=== PATIENT | female | born 1925 | race Caucasian/White ===

== ENCOUNTER 2017-05-30 12:11 | Inpatient (IN) | payer OTHER ==
[~2017-05-30] VITALS: Ht 152.4 cm; Wt 59.0 kg
[~2017-05-30 12:11] MED LIST: [UNRECOGNIZED DRUG - OTHER]
[2017-05-30] MEDS ORDERED: HYZAAR 100-251 EACH PO (12:32)
[2017-05-30] MEDS ORDERED: FEMARA2.5 MG PO (12:33)
[2017-05-30] MEDS ORDERED: NAMENDA10 MG PO (12:33)
[2017-05-30] MEDS ORDERED: RISPERDAL0.5 MG PO (12:34)
[2017-06-12] MEDS ORDERED: IPRATROPIU0.2 MG/1 M IH (09:35)
[2017-06-12] MEDS ORDERED: Pulmicort 0.5 MG/2 M IH (09:35)
[2017-06-12] MEDS ORDERED: Ferro-Plex CAPLET PO (09:45)
[2017-06-12] MEDS ORDERED: FEMARA2.5 MG PO (09:45)
[2017-06-12] MEDS ORDERED: FOLIC ACID1 MG PO (09:45)
[2017-06-12] MEDS ORDERED: POM (MEDICAMENTO EN PO ×2 (09:45)
[2017-06-12] MEDS ORDERED: Coreg 6.25MG TABLET PO (09:45)
[2017-06-12] MEDS ORDERED: LASIX20 MG PO (09:45)
[2017-06-12] MEDS ORDERED: NAMENDA10 MG PO (09:45)
[2017-06-12] MEDS ORDERED: RISPERIDONE0.5 MG PO (09:45)
[2017-06-12] MEDS ORDERED: BISAC-EVAC10 MG RECTAL (09:45)
[2017-06-12] MEDS ORDERED: ELIQUIS2.5 MG PO (09:45)
[2017-06-12] MEDS ORDERED: ISORDIL10 MG PO (09:45)
[2017-06-12] MEDS ORDERED: LOSARTAN POTASS50 MG PO (09:45)
[2017-06-12] MEDS ORDERED: Neurin-Sl Tablet Sl SL (09:45)
== END 2017-06-12 18:34 | disposition home health service (06) | DRG 292 ==
LOC: ER 12:11 → MEDJ 18:57 → SEC-K 22:46 → MEDI 05-31 03:27 → SEC-K 05-31 04:34 → MEDJ 05-31 10:38 → SURH 05-31 17:13
PROC: 4A033R1 Measurement of Arterial Saturation, Peripheral, Percutaneous Approach (ICD-10-PCS; principal; 2017-05-30)
PROC: 3E0F7GC Introduction of Other Therapeutic Substance into Respiratory Tract, Via Natural or Artificial Opening (ICD-10-PCS; 2017-05-30)
PROC: B44HZZZ Ultrasonography of Bilateral Lower Extremity Arteries (ICD-10-PCS; 2017-05-31)
PROC: B54DZZZ Ultrasonography of Bilateral Lower Extremity Veins (ICD-10-PCS; 2017-05-31)
PROC: B246ZZZ Ultrasonography of Right and Left Heart (ICD-10-PCS; 2017-05-31)
PROC: 4A12X4Z Monitoring of Cardiac Electrical Activity, External Approach (ICD-10-PCS; 2017-05-31)
PROC: CB121ZZ Planar Nuclear Medicine Imaging of Lungs and Bronchi using Technetium 99m (Tc-99m) (ICD-10-PCS; 2017-06-04)
PROC: BB24ZZZ Computerized Tomography (CT Scan) of Bilateral Lungs (ICD-10-PCS; 2017-06-06)
DX: I11.0 Hypertensive heart disease with heart failure (principal); J90 Pleural effusion, not elsewhere classified; N17.8 Other acute kidney failure; I27.82 Chronic pulmonary embolism; I48.0 Paroxysmal atrial fibrillation; I50.23 Acute on chronic systolic (congestive) heart failure; E11.65 Type 2 diabetes mellitus with hyperglycemia; I34.0 Nonrheumatic mitral (valve) insufficiency; D64.89 Other specified anemias; I70.293 Other atherosclerosis of native arteries of extremities, bilateral legs; E87.6 Hypokalemia; R09.02 Hypoxemia; C50.912 Malignant neoplasm of unspecified site of left female breast

== ENCOUNTER 2017-06-20 14:42 | Inpatient (IN) | payer OTHER ==
[~2017-06-20] VITALS: Ht 160 cm; Wt 72.6 kg
[~2017-06-20 14:42] MED LIST changes: +BISAC-EVAC10 MG RECTAL; +Coreg 6.25MG TABLET PO; +ELIQUIS2.5 MG PO; +FEMARA2.5 MG PO; +FOLIC ACID1 MG PO; +Ferro-Plex CAPLET PO; +HYZAAR 100-251 EACH PO; +IPRATROPIU0.2 MG/1 M IH; +ISORDIL10 MG PO; +LASIX20 MG PO; +LOSARTAN POTASS50 MG PO; +NAMENDA10 MG PO; +Neurin-Sl Tablet Sl SL; +POM (MEDICAMENTO EN PO; +Pulmicort 0.5 MG/2 M IH; +RISPERDAL0.5 MG PO; +RISPERIDONE0.5 MG PO
[2017-06-27] MEDS ORDERED: LASIX40 MG PO (17:23)
[2017-06-27] MEDS ORDERED: ACETAZOLAMIDE250 MG PO (17:23)
== END 2017-06-28 10:11 | disposition other institution (70) | DRG 291 ==
LOC: ER 14:42 → SURH 19:08 → SEC-K 19:08 → MEDJ 20:16 → MEDI 21:24 → SURH 21:24
PROC: 4A033R1 Measurement of Arterial Saturation, Peripheral, Percutaneous Approach (ICD-10-PCS; principal; 2017-06-20)
PROC: 3E0F7GC Introduction of Other Therapeutic Substance into Respiratory Tract, Via Natural or Artificial Opening (ICD-10-PCS; 2017-06-20)
PROC: 4A12X4Z Monitoring of Cardiac Electrical Activity, External Approach (ICD-10-PCS; 2017-06-20)
DX: I13.0 Hypertensive heart and chronic kidney disease with heart failure and stage 1 through stage 4 chronic kidney disease, or unspecified chronic kidney disease (principal); I50.23 Acute on chronic systolic (congestive) heart failure; N17.8 Other acute kidney failure; I27.82 Chronic pulmonary embolism; J90 Pleural effusion, not elsewhere classified; E11.65 Type 2 diabetes mellitus with hyperglycemia; I48.0 Paroxysmal atrial fibrillation; R09.02 Hypoxemia; Z66 Do not resuscitate; E11.22 Type 2 diabetes mellitus with diabetic chronic kidney disease; N18.1 Chronic kidney disease, stage 1; D63.1 Anemia in chronic kidney disease; C50.912 Malignant neoplasm of unspecified site of left female breast; K59.09 Other constipation